=== PATIENT | male | born 1990 | race Caucasian/White ===

== ENCOUNTER 2016-02-23 09:15 | Emergency (ER) | payer BC ==
[2016-02-23 09:43] VITALS: BP 126/77
--- NOTE | 2016-02-23 10:39 | UC ---
Abdominal Pain Male HPI - HPI Summary HPI Summary: 25 year old presents with mid-gastric intermittent cramping pain x 3 days. Pain is worsened by coughing, some what alleviated with leaning forward. Pain began gradually throughout the day. Pain located in the mid-epigastric region and radiates to the lateral abdominal sides. Reports soft formed brown stools x 3 days, denies foul-odor or black tar stools. Reports vomiting x 3 weeks induced by forceful coughing and experienced occasionally after meals. Patient was treated with doxycycline 100mg BID x 10 days for bronchitis, completed abx course yesterday. Denies fever-like symptoms. Patient reporting 1-4 soft formed BM over the past three days. - History of Current Complaint Chief Complaint: UCGeneralIllness Stated Complaint: STOMACH PAIN,URINARY PAIN Time Seen by Provider: 02/23/16 10:08 Hx Obtained From: Patient Onset/Duration: Gradual Onset Timing: Intermittent Episodes Lasting: Severity Initially: Mild Severity Currently: Mild Pain Scale Used: 0-10 Numeric Location: Diffuse, Epigastric Radiates: No Character: Aching, Cramping Aggravating Factor(s):: Food, Movement, Deep Breaths Alleviating Factor(s): Position Associated Signs And Symptoms: Positive: Cough, Nausea, Vomiting, Diarrhea - Risk Factors Testicular Torsion: Negative Cardiac Risk Factors: Negative - Allergies/Home Medications Allergies/Adverse Reactions: Allergies Allergy/AdvReac Type Severity Reaction Status Date / Time Clarithromycin [From Biaxin] Allergy Intermediate See Comment Verified 02/23/16 09:43 Metoclopramide [From Reglan] Allergy Intermediate See Comment Verified 02/23/16 09:43 Home Medications: Home Medications Ibuprofen TAB* [Motrin TAB* 600 MG] 600 mg PO Q6H PRN 02/23/16 [History Confirmed 02/23/16] [id number] [DAY TIME/NITE TIME COLD (Liquid)] 1 mis PO DAILY PRN 02/23/16 [History Confirmed 02/23/16] Throat Lozenges [Cough Drops Menthol] 1 drake [place] DAILY 02/23/16 [History Confirmed 02/23/16] guaiFENesin ER TAB [Mucinex*] 600 mg PO BID PRN 02/23/16 [History Confirmed 08/03] PMH/Surg Hx/FS Hx/Imm Hx Previously Healthy: Yes Endocrine History Of: Denies: Diabetes, Thyroid Disease, Hyperthyroidism, Hypothyroidism Cardiovascular History Of: Denies: Cardiac Disorders, Hypertension, Atrial Fibrillation, Bleeding Disorders Respiratory History Of: Reports: Asthma - CHILDHOOD--NO ATTACKS SINCE AGE 12, Bronchitis Denies: COPD, Pneumonia GI/ History Of: Reports: Gastroesophageal Reflux Denies: Ulcer, Gastrointestinal Bleed, Kidney Stones, Diverticulitis, Renal Disease Neurological History Of: Denies: TIA, CVA, Dementia Psychological History Of: Denies: Anxiety, Depression, Bipolar Disorder - Surgical History Surgical History: Yes Surgery Procedure, Year, and Place: T&A. EAR TUBES - Family History Known Family History: Positive: Cardiac Disease - FATHER CARDIAC STENT, Hypertension - DAD AND MOM, Diabetes - DM2, COPD, ASTHMA, HTN-MOM, Respiratory Disease - Social History Occupation: Employed Full-time - [employer] Lives: With Family Alcohol Use: Rare Substance Use Type: None Smoking Status (MU): Current Every Day Smoker Type: Cigarettes Amount Used/How Often: 1/3 ppd Length of Time of Smoking/Using Tobacco: Began at 14 years of age Have You Smoked in the Last Year: Yes - Immunization History Most Recent Influenza Vaccination: not this season Review of Systems Constitutional: Negative Skin: Negative Eyes: Negative ENT: Negative Respiratory: Cough Cardiovascular: Negative Gastrointestinal: Abdominal Pain, Vomiting, Diarrhea Genitourinary: Hematuria Motor: Negative Neurovascular: Negative Musculoskeletal: Negative Neurological: Negative Psychological: Negative All Other Systems Reviewed And Are Negative: Yes Physical Exam Triage Information Reviewed: Yes Appearance: Well-Appearing, No Pain Distress Vital Signs: Initial Vital Signs Temp 98.8 F 02/23/16 09:35 Pulse 70 02/23/16 09:35 Resp 16 02/23/16 09:35 BP 126/77 02/23/16 09:35 Pulse Ox 97 02/23/16 09:35 Vital Signs Reviewed: Yes Eye Exam: Normal Eyes: Positive: Conjunctiva Clear ENT Exam: Normal ENT: Positive: Normal ENT inspection Dental Exam: Normal Neck exam: Normal Neck: Positive: Supple, No Lymphadenopathy, Nuchal Rigidity, Tenderness @ Respiratory Exam: Normal Respiratory: Positive: Chest non-tender, Lungs clear, Normal breath sounds, No respiratory distress, No accessory muscle use Cardiovascular Exam: Normal Cardiovascular: Positive: RRR, No Murmur Abdomen Description: Positive: Soft. Negative: Nontender - Mild low abdominal tenderness, no rebound or peritoneal signs Bowel Sounds: Positive: Hyperactive Musculoskeletal Exam: Normal Neurological Exam: Normal Psychological Exam: Normal Skin Exam: Normal Abd Pain Male Course/Dx - Differential Dx/Clinical Impression Provider Diagnoses: post viral cough. antibiotic-associated diarrhea Discharge - Discharge Plan Condition: Stable Disposition: HOME Patient Education Materials: Acute Diarrhea (ED), Acute Cough (ED) Referrals: Non Staff,Doctor [Primary Care Provider] - If Needed Additional Instructions: POST-VIRAL COUGH: A very common cause of persistent cough is called "post-viral cough syndrome." During a viral infection, the virus can irritate your bronchial tubes. Then even after the infection is over, you may continue to cough. Your cough is left over from your recent viral infection. You do not show evidence of a continuing viral infection,bronchitis or pneumonia. You do not need antibiotics at this time. It may be helpful to use inhaled cool mist, throat lozenges, cough medication or bronchial inhalers to open up your bronchial tubes. We expect you will be improved in a week or two. Please get back to us if you have fever, chest pain, colored sputum, blood in the sputum, wheezing or shortness of breath. Use albuterol and nebulizer inhaler as needed for SOB.
== END 2016-02-23 11:38 | disposition home or self-care (01) ==
LOC: UCCORT 09:15
DX: R05 Cough (principal); K52.1 Toxic gastroenteritis and colitis; T36.95XA Adverse effect of unspecified systemic antibiotic, initial encounter; Y92.9 Unspecified place or not applicable; F17.210 Nicotine dependence, cigarettes, uncomplicated; Z88.3 Allergy status to other anti-infective agents; Z88.8 Allergy status to other drugs, medicaments and biological substances
CPT/HCPCS: 87798; 99211; G0463

== ENCOUNTER 2018-05-31 17:40 | Emergency (ER) | payer BC, OTHER ==
[2018-05-31 18:45] VITALS: BP 147/74
[2018-05-31] MEDS ORDERED: Amoxicillin PO (*) 500 MG CAP PO ONE (19:03)
[2018-05-31] MEDS ORDERED: Erythromycin OPTH OINT* APPLIC OINT LEFT EYE ONE (19:03)
--- NOTE | 2018-05-31 19:03 | UC ---
Eye Complaint HPI - HPI Summary HPI Summary: Has had sore throat with congestion and wheezing cough. Eye redness with discharge this morning. Sinus pain in the frontal sinuses. - History of Current Complaint Chief Complaint: UCEye Stated Complaint: POSS. PINK EYE Hx Obtained From: Patient Onset/Duration: Sudden Onset, Lasting Days - 2, Worse Since - this AM Timing: Constant Severity Initially: Mild Severity Currently: Moderate Pain Intensity: 0 Character: Foreign Body Sensation - itching, irritated Aggravating Factor(s): Blinking Alleviating Factor(s): Nothing Associated Signs And Symptoms: Positive: Drainage (Purulent), Swelling. Negative: Photophobia, Vision Impairment Left, Fever - Allergies/Home Medications Allergies/Adverse Reactions: Allergies Allergy/AdvReac Type Severity Reaction Status Date / Time clarithromycin [From Biaxin] AdvReac "seizures" Verified 05/31/18 18:47 metoclopramide [From Reglan] AdvReac "lethargic" Verified 05/31/18 18:47 PMH/Surg Hx/FS Hx/Imm Hx Respiratory History: Asthma - Surgical History Surgical History: Yes Surgery Procedure, Year, and Place: T&A. EAR TUBES as a child. ear tubes 2017 - Family History Known Family History: Positive: Cardiac Disease - FATHER CARDIAC STENT, Hypertension - DAD AND MOM, Diabetes - DM2, COPD, ASTHMA, HTN-MOM, Respiratory Disease - Social History Occupation: Employed Full-time Lives: With Family Alcohol Use: Rare Substance Use Type: None Smoking Status (MU): Former Smoker Type: Cigarettes Amount Used/How Often: 1/3 ppd Length of Time of Smoking/Using Tobacco: Began at 14 years of age Have You Smoked in the Last Year: Yes When Did the Patient Quit Smoking/Using Tobacco: 6 weeks ago - Immunization History Most Recent Influenza Vaccination: not this season Review of Systems All Other Systems Reviewed And Are Negative: Yes Constitutional: Positive: Chills, Fatigue Eyes: Positive: Drainage, Eye Redness ENT: Positive: Sore Throat, Nasal Discharge, Sinus Pain/Tenderness Respiratory: Positive: Shortness Of Breath, Cough Physical Exam Triage Information Reviewed: Yes Appearance: No Pain Distress, Ill-Appearing, Obese Vital Signs: Initial Vital Signs Temp 98 F 05/31/18 18:41 Pulse 85 05/31/18 18:41 Resp 18 05/31/18 18:41 BP 147/74 05/31/18 18:41 Pulse Ox 99 05/31/18 18:41 Vital Signs Reviewed: Yes Eyes: Positive: Conjunctiva Inflamed - OS, Discharge - OS ENT: Positive: Pharynx normal, Nasal congestion, TMs normal Neck exam: Normal Respiratory: Positive: Wheezing - diffuse expiratory wheezing Cardiovascular Exam: Normal Musculoskeletal Exam: Normal Neurological Exam: Normal Psychological Exam: Normal Skin Exam: Normal Eye Complaint Course/Dx - Differential Dx/Diagnosis Differential Diagnosis/HQI/PQRI: Conjunctivitis, Corneal Abrasion, Periorbital Cellulitis Provider Diagnosis: Upper respiratory infection, Sinusitis, Bronchospasm, acute, Conjunctivitis, viral Discharge - Sign-Out/Discharge Documenting (check all that apply): Patient Departure All imaging exams completed and their final reports reviewed: No Studies - Discharge Plan Condition: Stable Disposition: HOME Prescriptions: Amoxicillin PO (*) [Amoxicillin 875 MG (*)] 875 mg PO BID #20 tab Bacitracin OPHTH.OINT* 1 applic .SEE ORDER TID #3.5 gm predniSONE TAB* [Deltasone TAB*] 50 mg PO DAILY #7 tab Patient Education Materials: Upper Respiratory Infection (ED), Wheezing (ED), Conjunctivitis (ED), Sinusitis (ED) Referrals: Alicia Shelby MD [Primary Care Provider] - 2 Weeks (regarding blood pressure ) - Billing Disposition and Condition Condition: STABLE Disposition: Home
[2018-05-31] MEDS ORDERED: Albuterol HFA INHALER* 8 gm MDI INH ONE (19:04)
== END 2018-05-31 19:39 | disposition home or self-care (01) ==
LOC: UCCORT 17:40
DX: J06.9 Acute upper respiratory infection, unspecified (principal); J01.90 Acute sinusitis, unspecified; J98.01 Acute bronchospasm; B30.9 Viral conjunctivitis, unspecified; J45.909 Unspecified asthma, uncomplicated; Z88.3 Allergy status to other anti-infective agents; Z88.8 Allergy status to other drugs, medicaments and biological substances; Z87.891 Personal history of nicotine dependence
CPT/HCPCS: 99213; A9270-GY; G0463

== ENCOUNTER 2018-06-02 19:59 | Emergency (ER) | payer OTHER ==
[2018-06-02 20:40] VITALS: BP 131/71
--- NOTE | 2018-06-02 21:07 | UC ---
Respiratory Complaint HPI - HPI Summary HPI Summary: 27-year-old male who was diagnosed with bronchitis and started antibiotics and albuterol inhaler as well as prednisone 2 days ago. He states that he has had some nausea with vomiting today approximate 4 times in the past 24 hours. He denies any diarrhea. - History of Current Complaint Chief Complaint: UCRespiratory Stated Complaint: VOMITING/COUGH/CONGESTION Time Seen by Provider: 06/02/18 21:06 Hx Obtained From: Patient Onset/Duration: Gradual Onset Severity Initially: Mild Severity Currently: Mild Pain Intensity: 6 Character: Cough: Nonproductive Alleviating Factors: Bronchodilator Associated Signs And Symptoms: Positive: URI, Nasal Congestion - Allergies/Home Medications Allergies/Adverse Reactions: Allergies Allergy/AdvReac Type Severity Reaction Status Date / Time clarithromycin [From Biaxin] AdvReac "seizures" Verified 06/02/18 20:35 metoclopramide [From Reglan] AdvReac "lethargic" Verified 06/02/18 20:35 Home Medications: Home Medications Albuterol HFA INHALER* [Ventolin HFA Inhaler*] 1 - 2 puff INH Q4H PRN 06/02/18 [ History Confirmed 06/02/18] LoraTADine TAB(NF) [Claritin 10 MG TAB(NF)] 10 mg PO DAILY 06/02/18 [History Confirmed 06/02/18] PMH/Surg Hx/FS Hx/Imm Hx Previously Healthy: Yes Respiratory History: Bronchitis - Being treated for bronchitis. - Surgical History Surgical History: Yes Surgery Procedure, Year, and Place: T&A. EAR TUBES as a child. ear tubes 2017 - Family History Known Family History: Positive: Cardiac Disease - FATHER CARDIAC STENT, Hypertension - DAD AND MOM, Diabetes - DM2, COPD, ASTHMA, HTN-MOM, Respiratory Disease - Social History Alcohol Use: Rare Substance Use Type: None Smoking Status (MU): Former Smoker Type: Cigarettes Amount Used/How Often: 1/3 ppd Length of Time of Smoking/Using Tobacco: Began at 14 years of age Have You Smoked in the Last Year: Yes When Did the Patient Quit Smoking/Using Tobacco: 03/2018 - Immunization History Most Recent Influenza Vaccination: not this season Review of Systems All Other Systems Reviewed And Are Negative: Yes Constitutional: Positive: Negative Skin: Positive: Negative ENT: Positive: Nasal Discharge Respiratory: Positive: Cough - Reductive cough. Gastrointestinal: Positive: Nausea Is Patient Immunocompromised?: No Physical Exam Triage Information Reviewed: Yes Appearance: Well-Appearing, No Pain Distress, Well-Nourished Vital Signs: Initial Vital Signs Temp 98.7 F 06/02/18 20:31 Pulse 90 06/02/18 20:31 Resp 20 06/02/18 20:31 BP 131/71 06/02/18 20:31 Pulse Ox 97 06/02/18 20:31 Vital Signs Reviewed: Yes Eye Exam: Normal ENT: Positive: Hearing grossly normal, Pharynx normal, Nasal congestion, Nasal drainage, TMs normal, Uvula midline. Negative: Tonsillar swelling, Tonsillar exudate, Trismus, Muffled voice, Hoarse voice Neck: Positive: Supple, Nontender, No Lymphadenopathy Respiratory: Positive: Lungs clear, Normal breath sounds, No respiratory distress, No accessory muscle use Cardiovascular: Positive: RRR, No Murmur, Pulses Normal, Brisk Capillary Refill Abdominal Exam: Normal Bowel Sounds: Positive: Present Musculoskeletal Exam: Normal Neurological Exam: Normal Psychological Exam: Normal Skin Exam: Normal Respiratory Course/Dx - Course Course Of Treatment: He has been comfortable here. He does have a harsh cough. I advised him to continue using all of his present medications and give the prednisone and the amoxicillin time to work. I did give him Zofran 4 mg here and a prescription for nausea for home and no work until . Patient is agreeable with this plan of action. He is to follow-up with his primary care provider if no improvement in 2 or 3 days. - Differential Dx/Diagnosis Provider Diagnosis: Bronchitis, Nausea Discharge - Sign-Out/Discharge Documenting (check all that apply): Patient Departure All imaging exams completed and their final reports reviewed: No Studies - Discharge Plan Condition: Good Disposition: HOME Prescriptions: Ondansetron TAB* [Zofran 4 MG Tab*] 4 mg PO Q6H PRN #10 tab PRN Reason: Nausea Patient Education Materials: Acute Bronchitis (ED) Forms: *Work Release Referrals: Alicia Shelby MD [Primary Care Provider] - Additional Instructions: Continue all other present medications. Follow-up with your primary care provider if no improvement in 3 or 4 days. Take your prednisone with food. - Billing Disposition and Condition Condition: GOOD Disposition: Home - Attestation Statements Provider Attestation: Per institutional requirements, I have reviewed the chart, however, I was not consulted specifically or made aware of this patient by the midlevel provider. I did not personally evaluate, interact with , or disposition this patient.
[2018-06-02] MEDS ORDERED: Ondansetron ODT TAB* 4 MG PO ONE (21:16)
== END 2018-06-02 21:23 | disposition home or self-care (01) ==
LOC: UCCORT 19:59
DX: J40 Bronchitis, not specified as acute or chronic (principal); R11.10 Vomiting, unspecified; Z88.1 Allergy status to other antibiotic agents; F17.210 Nicotine dependence, cigarettes, uncomplicated
CPT/HCPCS: 99212; A9270-GY; G0463

== ENCOUNTER 2021-05-09 05:37 | Inpatient (IN) ==
[2021-05-09] MEDS ORDERED: Buffered Lidocaine 1% SYRIN 1 ml INTRADERM ONE ×2 (06:00→06:16)
[2021-05-09] MEDS ORDERED: Lactated Ringers 1000 ml BAG 1,000 ML IV SCH (06:00)
[2021-05-09] MEDS ORDERED: Scopolamine 1 mg/72hr PATCH ONE (06:15)
[2021-05-09] MEDS ORDERED: Heparin 5000 UNITS/ML 1 mL VIAL ONE (06:15)
[2021-05-09] MEDS ORDERED: ceFAZolin 2 GM in NS PREMIX 2 GM/100 ML BAG IVPB ONE (06:16)
[2021-05-09] MEDS ORDERED: Bupivacaine 0.25% EPI 200,000 30 ML SDV ONE (06:59)
[2021-05-09] MEDS ORDERED: Methylene Blue 0.5 % 50 MG/10 ML AMP IV ONE (06:59)
[2021-05-09] MEDS ORDERED: Rocuronium 50 mg VIAL 10 mg/ml 5 ml VIAL (50 mg) ONE (07:00)
[2021-05-09] MEDS ORDERED: Lidocaine 2% PF 5 ML VIAL ONE (07:01)
[2021-05-09] MEDS ORDERED: Propofol 10 MG/ML 20 ML BTL ONE (07:01)
[2021-05-09] MEDS ORDERED: Ketamine HCL 50 mg/ml 10 ml VIAL (500 MG) ONE (07:04)
[2021-05-09] MEDS ORDERED: fentaNYL 100 mcg/2 ml 50 MCG/ML VIAL ONE ×4 (07:04→12:35)
[2021-05-09] MEDS ORDERED: Naloxone 0.4 mg VIAL 0.4 mg/ml 1 ml VIAL IV PRN (08:26)
[2021-05-09] MEDS ORDERED: Acetaminophen IV 1 GM/100ML 100 ML IV ONE ×2 (08:26→11:20)
[2021-05-09] MEDS ORDERED: Glycopyrrolate IV 0.2 MG/ML 1 ML VIAL ONE (09:48)
[2021-05-09] MEDS ORDERED: Neostigmine Methylsulfate 3 MG/3 ML SYRINGE ONE (09:48)
[2021-05-09] MEDS ORDERED: Albuterol 2.5mg/3 ml (0.083%) NEB.SOLN INH ONE (10:58)
[2021-05-09] MEDS ORDERED: Acetaminophen IV 1 GM/100ML 100 ML IV PRN (11:07)
[2021-05-09] MEDS ORDERED: diPHENhydraMINE IV 50 MG/ML 1 ml VIAL (BENADRYL) SLOW PUSH PRN (11:07)
[2021-05-09] MEDS ORDERED: Albuterol HFA INHALER 8 gm MDI INH PRN (11:16)
[2021-05-09] MEDS: fentaNYL 100 mcg/2 ml 50 MCG/ML VIAL IV PRN ×3 (11:21→12:36)
[2021-05-09] MEDS: Lactated Ringers 1000 ml BAG 1,000 ML IV SCH ×2 (13:37→21:25)
[2021-05-09] MEDS: Heparin 5000 UNITS/ML 1 mL VIAL SUBCUT SCH ×2 (15:22→23:24)
[2021-05-09] MEDS: HYDROmorphone 0.5 MG/0.5 ML SYRINGE IV SLOW PU PRN ×2 (15:45→20:19)
[2021-05-09] MEDS: Mometasone/Formoter 200/5 MDI INH SCH (19:13)
[2021-05-09] MEDS: Famotidine IV 10 MG/ML 2 ml VIAL (20 mg) IV SLOW PU SCH (20:19)
[2021-05-10] MEDS: HYDROmorphone 0.5 MG/0.5 ML SYRINGE IV SLOW PU PRN (02:50)
[2021-05-10] MEDS: Ondansetron 4 mg VIAL 2 MG/ML 2 ml VIAL IV PRN (02:57)
[2021-05-10] MEDS: Heparin 5000 UNITS/ML 1 mL VIAL SUBCUT SCH ×3 (05:42→22:11)
[2021-05-10] MEDS: Lactated Ringers 1000 ml BAG 1,000 ML IV SCH ×2 (05:42→12:48)
[2021-05-10] MEDS: Mometasone/Formoter 200/5 MDI INH SCH ×2 (08:05→08:30)
[2021-05-10] MEDS: Famotidine IV 10 MG/ML 2 ml VIAL (20 mg) IV SLOW PU SCH ×2 (08:32→21:56)
[2021-05-10] MEDS ORDERED: HYDROcodone/ACET. 7.5/325 LIQ 15 ML UDC PO PRN ×2 (11:01→11:04)
[2021-05-10] MEDS: HYDROmorphone 1 MG/1 ML SYRINGE IV SLOW PU PRN (22:11)
[2021-05-10] MEDS: D5W 1/2 NS KCl 20 meq 1000 ml 1,000 ML IV SCH (22:11)
[2021-05-11] MEDS: Mometasone/Formoter 200/5 MDI INH SCH ×2 (01:00→09:17)
[2021-05-11] MEDS: HYDROmorphone 1 MG/1 ML SYRINGE IV SLOW PU PRN (01:17)
[2021-05-11] MEDS: Ondansetron 4 mg VIAL 2 MG/ML 2 ml VIAL IV PRN (01:17)
[2021-05-11] MEDS: Heparin 5000 UNITS/ML 1 mL VIAL SUBCUT SCH (05:59)
[2021-05-11] MEDS: D5W 1/2 NS KCl 20 meq 1000 ml 1,000 ML IV SCH (08:48)
[2021-05-11 08:54] VITALS: BP 117/57
[2021-05-11] MEDS: Famotidine IV 10 MG/ML 2 ml VIAL (20 mg) IV SLOW PU SCH (10:26)
== END 2021-05-11 11:00 | disposition home or self-care (01) | DRG 403 ==
LOC: AA 05:37 → SSU 13:36
PROVIDERS: ADMIT Surgery; ATTEND Surgery